=== PATIENT | male | born 1960 | race Asian ===

== ENCOUNTER 2021-04-28 22:11 | Emergency (ER) | payer OTHER ==
[2021-04-28 22:22] VITALS: BP 149/84; PULSE 60; TEMP 98.7; BMI 21.6
[2021-04-28] MEDS ORDERED: DIPHTH,PERTUSS(ACELL),TET 0.5 ML DISP.SYRIN IM ONE ×3 (22:28→22:47)
== END 2021-04-28 22:59 | disposition home or self-care (01) ==
LOC: JER 22:11
PROC: 3E0234Z Introduction of Serum, Toxoid and Vaccine into Muscle, Percutaneous Approach (ICD-10-PCS; principal; 2021-04-28)
DX: S69.91XA Unspecified injury of right wrist, hand and finger(s), initial encounter (principal)
CPT/HCPCS: 73140-TC-RT-FY; 90715; 99284-25